=== PATIENT | female | born 2005 | race Caucasian/White ===

== ENCOUNTER 2025-05-05 10:29 | Outpatient (AMB) | payer BC, SELFPAY ==
--- NOTE | 2025-05-05 10:38 | A.OFFPC_ITS ---
Vital Signs 05/05/25 10:46 Height 5 ft 6.14 in Weight 128 lb 8 oz BMI 20.7 BP 104/62 Blood Pressure Location Lt brachial Position Sitting Respiration 12 Pulse 92 Pulse Source Pulse Oximeter Temp 97.8 F Temp Source Oral Pulse Oximetry (%) 99 Oxygen Delivery Method Room Air Intake Visit Reasons: CPE Intake Note: New patient visit Surgical Sales Representative Required: No Allergies sulfamethoxazole (From Bactrim) Allergy (Intermediate, Verified 05/05/25 10:57) Vomiting trimethoprim (From Bactrim) Allergy (Intermediate, Verified 05/05/25 10:57) Vomiting Medication List - Last Reviewed 05/05/25 by Agnieszka Church, RODERICK propranolol 10 mg PO BID PRN sertraline 200 mg PO DAILY trazodone 25 - 50 mg PO BID PRN Tobacco use date assessed: 05/05/25 Dental Screening Dental Screen Date: 05/05/25 Did you have a dental visit in the last 12 months?: Yes Did you have a dental problem in the last 6 months where you did not have access to dental care?: No Was dental information given to patient?: Patient has dentist HPI HPI Comments History of Present Illness Details 19 y/o F with CHEN, insomnia, scoliosis, hx of LLL Pna, vitiligo, family hx of breast ca, Autism s/p L knee surgery, adenoidectomy 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 - Insomnia managed with trazodonefanny used currently. - Active w counselor and Med presciber - Vitiligo previously treated with topic al steroids; regular sunscreen use noted. Was ffd by derm; no longer - Autism spectrum disorder diagnosis bas ed on counselor's assessment. i do not have these records; i asked her for these - Reports family history of breast cance r in maternal aunt. Social History - Currently resides at home with parents and sister; planning to return to university campus. 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 - Reports smoking marijuana; no substanc e use beyond this noted. - Engages in sexuality active lifestyle with male partner, feels safe. Health Maintenance - Scheduled follow-up with psychiatrist regarding efficacy of current anxiety medication. - Planned referral to OBGYN for regular gynecological care. - Emphasized self-screening for breast c hanges, especially with family history of breast cancer. - Will begin routine mammogram screening s starting at age 40. Review of Systems - Psychiatric: Reports high anxiety. - Dermatologic: Denies significant issue s with vitiligo, managed with sunscreen use. - Other systems: Denies significant symp toms outside of those already discussed. Physical Exam General: Well developed, well nourished, in no acute distress. Appears stated age. Head: Normocephalic, atraumatic. Eyes: Pupils are equal, round and reactive to light and accommodation. Conjunctivae are clear. Vision grossly normal. P Ears: TMs clear AU, EACS WNL Nose: Patent, without discharge. Neck: Supple, no adenopathy or thyromegaly. No pain on palpation. Breast: Edu on SBE. Patient advised to perform self breast exams regularly, especially with family history of breast cancer. Lungs: Clear to auscultation bilaterally. No rales, rhonchi or wheeze noted. Good air flow in all tran. Heart: Regular rate and rhythm. No murmurs, click, rubs or gallops are noted. Abdomen: Bowel sounds present in all quadrants. The abdomen is soft, nontender, with no masses or organomegaly noted. No hernias are noted. : Deferred. Reviewed FLO & recommendations for routine EXCELLENCE MANAGER. Patient to be referred to OBGYN for routine care. Pulses: Peripheral pulses are equal and palpable bilaterally. Extremities: No clubbing, cyanosis nor edema is noted. Patient bites nails due to anxiety. Neurologic: Gait and station normal. Cranial Nerves 2-12 intact. Motor strength grossly symmetrical and intact. No sensory loss. Balance normal. Skin: No rashes, ulcers, or lesions noted. Turgor is good. Skin color is good. Hair and nails are without abnormalities. Vitiligo present on face Psych: Normal eye contact, affect and mood appropriate, and normal interactions. Results NA Discussion Notes In today's visit, we discussed the patient's current management plan for her anxiety and insomnia. She has been using sertraline for mood stabilization, but expresses concern regarding its current effectiveness. I advised her to consult with her psychiatrist for potential adjustments. She uses propranolol as needed for anxiety and finds it beneficial. Trazodone is used sporadically, primarily for relief from insomnia, especially anticipated with upcoming school demands. Vitiligo is not currently a major concern, managed with sunscreen. We discussed the importance of regular follow-up and screening with an OBGYN given her age and family cancer history. Encouraged active participation in self-monitoring for potential breast changes. Provided information regarding accessing our patient portal for communication and care management. Patient was given time to ask questions. All questions were answered to their satisfaction. Assessment and Plan 1. Anxiety - Cont psychiatrist follow-up for medica tion efficacy review. cont counseling - Continue propranolol as needed. 2. Insomnia - Use trazodone as needed. 3. Vitiligo - Maintain sunscreen use. 4. Autism Spectrum Disorder - Acknowledge diagnosis; No current inte rventions. Get records RTO 1 YEAR CPE, SOONER PRN Patient Instructions - Follow up with your psychiatrist next week regarding your anxiety medication. - Continue using propranolol as needed f or anxiety. - Use trazodone for insomnia, especially as school resumes. - Start regular self-breast exams and re port any changes. - Expect a call to schedule an OBGYN angus ointment. Consent Patient was informed and verbally consented to the use of an ambient scribe for clinic note documentation during this visit. An additional 20 minutes was spent addressing the problem(s) noted at todays visit. This includes time spent before the visit reviewing the chart, time spent during the visit, and time spent after the visit on documentation reviewing laboratory results, diagnostic imaging, medications, performing a medically necessary evaluation, counseling on diagnoses, care coordination, ordering appropriate tests, ordering appropriate medications, review of tests performed by other providers, reporting test results with the patient, communication with other healthcare providers. [facility] Medical History (Updated 05/05/25 @ 11:06 by K[facility]KE [facility] History of pneumonia Surgical History (Updated 05/05/25 @ 10:33 by Agnieszka Church CMA) H/O adenoidectomy S/P medial patellofemoral ligament reconstruction Family History (Updated 05/05/25 @ 10:44 by Agnieszka Church CMA) Maternal Grandmother Suicide Depression Maternal Grandfather Diabetes Mother Anxiety Other FH: mental illness Fibromyalgia Graves disease Social History (Updated 05/05/25 @ 10:48 by Agnieszka Church CMA) Housing: House Alcohol intake: current Patient Tobacco Use Status: Never used Tobacco e-Cigarette/Vaping Use: Never Used Second Hand Smoke Exposure: No Substance Use Type: Marijuana service: No Current occupational status: student Cognitive needs: No Hearing needs: No Vision needs: No Questionnaire PHQ-9 Over the last 2 weeks, how often have you been bothered by any of the following problems? 1. Little interest or pleasure in doing things: not at all 2. Feeling down, depressed, or hopeless: not at all 3. Trouble falling or staying asleep, or sleeping too much: not at all 4. Feeling tired or having little energy: several days 5. Poor appetite or overeating: more than half the days 6. Feeling bad about yourself - or that you are a failure or have let yourself or your family down: not at all 7. Trouble concentrating on things, such as reading the newspaper or watching television: not at all 8. Moving or speaking so slowly that other people could have noticed. Or the opposite - being so fidgety or restless that you have been moving around a lot more than usual: not at all 9. Thoughts that you would be better off or of hurting yourself in some way: not at all Total score: 3 Depression Screening Interpretation: Negative Depression Screening Done: Yes 59223 - PHQ-9 Billing: Yes Source: Developed by Drs. Jose Enrique Rucker, Jenna Mcclelland, Julien Rubalcava and colleagues, with an educational lindsay from [employer]. Thrive Questionnaire Date Thrive assessed: 05/04/25 I am a: Patient What is your living situation today?: I have a steady place to live Within the past 12 months, did the food you bought not last and you didn't have the money to get more?: Never true Within the past 12 months, did you worry whether your food would run out before you got money to buy more?: Never true Do you have trouble paying for medicines?: No Do you have trouble getting transportation to medical appointments?: No Do you have trouble paying your heating and electricity bill?: No Do you have trouble taking care of your child, family member or friend?: No Do you have trouble with day-to-day activities such as bathing, preparing meals, shopping, managing finances, etc.?: No Are you currently unemployed and looking for a job?: No Are you interested in more education?: No Please select the resources that you would like help with: None Currently or been in a relationship where the following occur: No concerns reported THRIVE Score: 0 AUDIT C Alcohol Use Questionnaire (AUDIT-C) 1. How often do you have a drink containing alcohol?: Monthly or less 2. How many drinks containing alcohol do you have on a typical day when you are drinking?: 3 or 4 3. How often do you have six or more drinks on one occasion?: Never Total Score: 2 Score Reviewed/Action Taken: Yes CHEN-7 AMB Questionnaire CHEN-7 Date CHEN - 7 assessed: 05/05/25 Feeling nervous, anxious, or on edge: 3 = Nearly every day Not being able to stop or control worryin = More than half the days Worrying too much about different things: 3 = Nearly every day Trouble relaxin = Several days Being so restless that it is hard to sit still: 0 = Not at all Becoming easily annoyed or irritable: 0 = Not at all Feeling afraid as if something awful might happen: 1 = Several days Total CHEN-7 score (0-4 normal; 5-9 mild; 10-14 moderate; 15-21 severe): 10 Source: Developed by Drs. Jose Enrique Rucker, Jenna Mcclelland, Julien Rubalcava and colleagues, with an educational lindsay from [employer]. CHEN-7 Assessment Billing CHEN-7 Assessment Tool: CHEN-7 Assessment 14987 Physical exam (Primary Care) Vital Signs: Last Vital Signs Temp 97.8 F 05/05/25 10:46 Pulse 92 05/05/25 10:46 Resp 12 05/05/25 10:46 BP 104/62 05/05/25 10:46 Pulse Ox 99 05/05/25 10:46 Oxygen Delivery Method Room Air 05/05/25 10:46 BMI result Body Mass Index 20.7 Tobacco/Smoking Status: Tobacco use Status Tobacco use date assessed 05/05/25 05/05/25 10:48 Patient Tobacco Use Status Never used Tobacco 05/05/25 10:48 e-Cigarette/Vaping Use Never Used 05/05/25 10:48 PHQ-9: PHQ-9 Score PHQ-9: Total score 3 05/05/25 10:48 Depression Screening Interpretation: Negative Thrive Assessment: Date of Thrive Assessment Date Thrive assessed 05/04/25 05/05/25 10:40 Currently or been in a relationship where the following occur: No concerns reported Coding Level of Care Code New Pt Level 3 (01616) New Pt Prev Care 18-39yr(25221 Diagnoses Encounter to establish care with new provider Z76.89 CHEN (generalized anxiety disorder) F41.1 Psychophysiological insomnia F51.04 Insomnia type: psychophysiologic Vitiligo L80 Family history of suicide Z81.8 Family history of breast cancer Z80.3 Autism spectrum disorder F84.0 Encounter for general adult medical examination without abnormal findings Z00.00 Additional Codes CHEN-7 Assessment Billing - CHEN-7 Assessment Tool: CHEN-7 Assessment 94810 ([id number]) PHQ-9 - 71576 - PHQ-9 Billing: Yes ([id number]) Assessment & Plan Assessment & Plan (1) Encounter to establish care with new provider: Code(s): Z76.89 - Persons encountering health services in other specified circumstances (2) CHEN (generalized anxiety disorder): Comment: managed by outside prescriber and counselor Code(s): F41.1 - Generalized anxiety disorder Category: Medical (3) Insomnia: Code(s): G47.00 - Insomnia, unspecified Category: Medical Qualifiers: Insomnia type: psychophysiologic Qualified Code(s): F51.04 - Psychophysiologic insomnia (4) Vitiligo: Code(s): L80 - Vitiligo Category: Medical (5) Family history of suicide: Comment: [facility] Code(s): Z81.8 - Family history of other mental and behavioral disorders Category: Medical (6) Family history of breast cancer: Comment: maternal aunt age 55 Code(s): Z80.3 - Family history of malignant neoplasm of breast Category: Medical (7) Autism spectrum disorder: Code(s): F84.0 - Autistic disorder Category: Medical (8) Encounter for general adult medical examination without abnormal findings: Onset Date: ~05/05/25 Code(s): Z00.00 - Encounter for general adult medical examination without abnormal findings Category: Medical Plan . 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 Seasonal Allergies ? Insect Bites ? Cough ? Diarrhea ? Acute Asthma Attacks ? Back, Knee or Joint Pain ? Ear Infection ? Fever without a Rash ? Headaches ? Nausea ? [place] [facility], Rash or Skin Irritation ? Sore Throat ? Sports Physicals ? Vomiting Most insurances are accepted. Patients do not need to be part of the [facility] to seek care at the walk-in clinic. Locations [facility] [place] [address] ? [phone] [facility] [place] provides services to ages 18 and over. Open Sunday-Sunday: 8 a.m. to 5 p.m. and Sunday: 9 a.m. to 3 p.m.* *Hours may vary due to staffing availability. To confirm Walk-In Care hours in [place], please call [phone]. [address] [place] [address] ? [phone] [facility] [place] provides services to ages 12 and over. Open Sunday-Sunday: 8 a.m. to 5 p.m. Hours may vary due to staffing availability. To confirm Walk-In Care hours in [place], please call [phone]. LABORATORY SERVICES: [facility] Lab ? Primary Location [address] [place] [address] Sunday through Sunday 6:00 AM ? 5:00 PM Sunday 7:00 AM ? 11:00 AM* [phone] The [facility] Lab is centrally located near the front entrance of the [facility] for easy outpatient access. Convenient parking is provided for outpatients. *Hours may vary due to staffing availability. To confirm Laboratory hours for any location, please call [phone]. Offsite Location For your convenience, we offer offsite laboratory draw stations at the following locations: [address] [facility], [place] ? [facility] [address] [facility], [address], [place] Sunday through Sunday 7:30 AM ? 1:00 PM* [phone] *Hours may vary due to staffing availability. To confirm Laboratory hours for any location, please call [phone]. [place] ? [facility] [address] [facility] Sunday through Sunday 6:00 AM ? 3:30 PM* Sunday 6:30 AM ? 3 PM* [phone] *Hours may vary due to staffing availability. To confirm Laboratory hours for any location, please call [phone]. [address] [facility] Sunday through Sunday 7:30 AM ? 4:00 PM* [phone] *Hours may vary due to staffing availability. To confirm Laboratory hours for any location, please call [phone] [place] [address] Sunday through 9:00 AM ? 4:00 PM* *Hours may vary due to staffing availability. To confirm Laboratory hours for any location, please call [phone]. Appointments are not necessary. Walk-ins are welcome. Like all the departments throughout the [facility], our Lab undergoes frequent reviews to ensure the quality and accuracy of test results, and our staff takes special pride in its status as a nationally accredited facility. Patient Portal: ONE PATIENT. ONE RECORD. BETTER CARE. [facility] has a fully integrated, cutting- edge mobile electronic health information system that has revolutionized the way we care for our patients and manage our organization. This system improves communication and coordination enabling us to provide safe, higher-quality care, and an overall positive experience for staff and patients. Our first priority, as always, is to deliver the highest quality care possible. The system is running in the background supporting that priority. This portal is for all [facility] services and practices. If you are experiencing any technical difficulties with enrolling or logging into the Patient Portal please complete the [facility] Patient Portal Technical Support Form. [facility] now offers a new secure on-line interactive tool for patients to review their health information ? ?Patient Portal. This interactive web portal will enable patients and their families to take an active role in their care by providing easy, secure access to their health information via the internet. The Patient Portal provides patients with instant access to their health information, including laboratory results, medications, allergies, demographic information, visit history, and more. In addition to managing their own care, parents and health care proxies with authorized consent will appreciate the ability to access the records of those individuals for whom they provide care. Please note: if you wish to gain access (Proxy) to another patient?s portal, you will be required to come to the Medical Records Department in person at [facility]. Both the patient giving proxy access and the proxy will need to provide photo identification and complete the appropriate authorization. The Patient Portal also allows track their appointments online. The [facility] Patient Portal also saves patients time by allowing them to submit updates to their demographic and contact information prior to their visits. Portal email notifications will also alert patients to any new activity on their portal, such as test results and new appointments. In order to initially enroll in the [facility] Patient Portal, you will need to enter some required information including the following: * your [facility] Medical Record number * your personal home email address * name * date of Please note: In order to enroll in the [facility] Patient Portal, we need to have your email address on file in your electronic medical record. ?The email address needs to be specific for one person (yourself) in order for your Portal enrollment to be successful. ?You can update your email address in person with our Registration staff when you are registering for a hospital visit. ?Otherwise, you will need to come to the Health Information Management (Medical Records) Department at [facility]. ?We are open from Sunday ? Sunday from 7:30 a.m. ? 4:30 p.m. ?You will be required to present a photo id. Once you have successfully enrolled in the Patient Portal, you will receive a one-time user id and password for the Portal, sent to your email address. ?This will allow you to log into the Patient Portal within 99 hrs and reset your own logon id and password, and define personal security questions. ?Once your p ermanent login and password have been set, you can log into the [facility] Patient Portal at any time via the blue button above or from the Portal Logon button on any page of the [facility] website. [facility] encourage all of our patients to enroll in Patient Portal as it presents a valuable opportunity for patients and their families to actively participate in their care and stay healthy Welcome to [facility]. ?We look forward to working with you. Health screenings for women You should visit your health care provider from time to time, even if you are healthy. The purpose of these visits is to: Screen for medical issues Assess your risk for future medical problems Encourage a healthy lifestyle Update vaccinations and other preventive care services Help you get to know your provider in case of an illness Information Even if you feel fine, you should still see your provider for regular checkups. These visits can help you avoid problems in the future. For example, the only way to find out if you have high blood pressure is to have it checked regularly. High blood sugar and high cholesterol levels also may not have any symptoms in the early stages. A simple blood test can check for these conditions. There are specific times when you should see your provider or receive specific health screenings. The [place] Preventive Services Task Force publishes a list of recommended screenings. Below are screening guidelines for women ages 18 to 39. BLOOD PRESSURE SCREENING Your blood pressure should be checked at least once every 3 to 5 years if: Your blood pressure is in the normal range (top number less than 120 mm Hg and bottom number less than 80 mm Hg) You don't have risk factors for high blood pressure Ask your provider if you need your blood pressure checked more often if: The top number is 120 to 129 mm Hg or the bottom number is 70 to 79 mm Hg You have diabetes, heart disease, kidney problems, are overweight, or have certain other health conditions You have a first-degree relative with high blood pressure You are Black You had high blood pressure during a If the top number is 130 mm Hg or greater or the bottom number is 80 mm Hg or greater, this is considered stage 1 hypertension. Schedule an appointment with your provider to learn how you can reduce your blood pressure. Watch for blood pressure screenings in your area. Ask your provider if you can stop in to have your blood pressure checked. BREAST CANCER SCREENING Experts do not agree about the benefits of breast self-exams in finding breast cancer or saving lives. Talk to your provider about what is best for you. A screening mammogram is not recommended for most women under age 40. Your provider may discuss and recommend mammograms, MRI scans, or ultrasounds if you have an increased risk for breast cancer, such as: A mother or sister who had breast cancer at a young age (most often starting screening earlier than the age the close relative was diagnosed) You carry a high-risk genetic marker CERVICAL CANCER SCREENING Cervical cancer screening should start at age 21 years unless your provider advises otherwise. After the first test: Women ages 21 through 29 should have a Pap test every 3 years. Exoprts do not agree on whether HPV testing is recommended for this age group. Women ages 30 through 65 should be screened with either a Pap test every 3 years or the HPV test every 5 years or both tests every 5 years (called cotesting ). Women who have been treated for precancer (cervical dysplasia) should continue to have Pap tests for 20 years after treatment or until age 65, whichever is longer. If you have had your uterus and cervix removed (total hysterectomy), and you have not been diagnosed with cervical cancer or precancer (high grade cervical neoplasia), you do not need cervical cancer screening. CHOLESTEROL SCREENING Cholesterol screening should begin at: Age 45 for women with no known risk factors for coronary heart disease Age 20 for women with known risk factors for coronary heart disease Repeat cholesterol screening should take place: Every 5 years for women with normal cholesterol levels More often if changes occur in lifestyle (including weight gain and diet) More often if you have diabetes, heart disease, kidney problems, or certain other conditions DIABETES SCREENING You should be screened for diabetes starting at age 35 and then repeated every 3 years if you have no risk factors for diabetes. Screening may need to start earlier and be repeated more often if you have other risk factors for diabetes, such as: You have a first degree relative with diabetes. You are overweight or have obesity. You have high blood pressure, prediabetes, or a history of heart disease. Screening for diabetes should be done if you are planning to become and you are overweight and have other risk factors such as high blood pressure. DENTAL EXAM Go to the dentist once or twice every year for an exam and cleaning. Your dentist will evaluate if you need more frequent visits. EYE EXAM Have an eye exam every 5 to 10 years before age 40. If you have vision problems, have an eye exam every 2 years or more often if recommended by your provider. You should have an eye exam that includes an examination of your retina (back of your eye) at least every year if you have diabetes. IMMUNIZATIONS Commonly needed vaccines include: Flu shot: get one every year. COVID-19 vaccine: ask your provider what is best for you. Tetanus-diphtheria and acellular pertussis (Tdap) vaccine: have one at or after age 19 as one of your tetanus-diphtheria vaccines if you did not receive it as an adolescent. Tetanus-diphtheria: have a booster (or Tdap) every 10 years. Varicella vaccine: receive 2 doses if you never had chickenpox or the varicella vaccine. Hepatitis B vaccine: receive 2, 3, or 4 doses, depending on your exact circumstances. Measles, mumps, and rubella (MMR) vaccine: receive 1 to 2 doses if you are not already immune to MMR. Your provider can tell you if you are immune. Ask your provider about the human papillomavirus (HPV) vaccine if: You have not received the HPV vaccine in the past You have not completed the full vaccine series (you should catch up on this shot) Ask your provider if you should receive other immunizations if you have certain health problems that increase your risk for some diseases such as pneumonia. INFECTIOUS DISEASE SCREENING Women who are sexually active should be screened for chlamydia and gonorrhea up until age 25. Women 25 years and older should be screened for chlamydia and gonorrhea if at high risk. Screening for hepatitis C: All adults ages 18 to 79 should get a one-time test for hepatitis C. people should be screened at every . Screening for human immunodeficiency virus (HIV): All people ages 15 to 65 should get a one-time test for HIV. Depending on your lifestyle and medical history, you may also need to be screened for infections such as syphilis and HIV, as well as other infections. PHYSICAL EXAM All adults should visit their provider from time to time, even if they are healthy. The purpose of these visits is to: Screen for disease Assess your risk of future medical problems Encourage a healthy lifestyle Update your vaccinations and other preventive care services Maintain a relationship with a provider in case of an illness Your height, weight, and BMI should be checked at every exam. During your exam, your provider may ask you about: Depression and anxiety Diet and exercise Alcohol and tobacco use Safety issues, such as using seat belts, smoke detectors, and intimate partner violence Your medicines and risk for interactions SKIN SELF-EXAM Your provider may check your skin for signs of skin cancer, especially if you're at high risk, such as if you: Have had skin cancer before Have close relatives with skin cancer Have a weakened immune system OTHER SCREENING Talk with your provider about colon cancer screening if you have a strong family history of colon cancer or polyps, or if you have had inflammatory bowel disease or polyps yourself. Routine bone density screening of women under 40 is not recommended.
[2025-05-05 10:46] VITALS: BP 104/62; PULSE 92; RESP 12; TEMP 36.6; O2SAT 99; BMI 20.7
--- OUTSIDE RECORDS SUMMARY | 2025-05-05 11:55 | XMS_ITS | Clinical Summary ---
Author Organization [facility] Address [address] [place] [address] Phone Care Team Providers Care Flight Steward Name Role Phone Helen Cuevas NP Primary Care Provider [phone] Encounters Date Type Department Care Team Description 03/17/2025 Telephone [place] [address] [place] [address] Helen Cuevas NP medical release form (Medical release form faxed to HIM, copy scanned into documents) from Last 3 Months Surgical History Surgery Date Site/Laterality Comments OTHER SURGICAL HISTORY 09/17/2015 PROCEDURE: HI ADENOIDECTOMY SECONDARY<AGE 11 ORTHOPEDIC SURGERY 02/20/2023 PROCEDURE: HISTORICAL ORTHOPEDIC SURGERY; COMMENT: MPFL reconstructions w/a cadaver ligament L Medical History Medical History Date Comments Wart viral 09/17/2011 DX:Wart viral; C OMMENT: cryotherapy to right great toe Otitis media 12/17/2011 DX:Otitis media Strep pharyngitis 11/01, 01/29 DX:Strep phary ngitis Mononucleosis 04/17/2013 DX:Mononucleosis Left lower lobe pneumonia 08/23/2015 DX:Lef t lower lobe pneumonia COVID-19 virus infection 12/2021 DX:COVI D-19 virus infection Closed patellar dislocation 10/23/2022 DX:C losed patellar dislocation; COMMENT: 10/19/22 ER [facility] Will refer to ortho Family History Medical History Relation Name Comments Allergies Aunt 1 FIBROMYALGIA Asthma Aunt 2 Thyroid disease Aunt 3 GRAVES Diabetes Maternal Grandfather Depression Maternal Grandmother Hypertension Paternal Grandfather Relation Name Status Comments Aunt 1 Aunt 2 Aunt 3 Aunt 4 Father Alive 1974-healthy Maternal Grandfather Alive Type I DM Maternal Grandmother Alive HTN Mother Alive 1974-ANXIETY Paternal Grandfather Alive HTN, ab dominal aneurysm rupture (survived) Paternal Grandmother Alive healthy Sister Alive [id number] lthy Social History Tobacco Use Types Packs/Day Years Used Date Smoking Tobacco: Never Smokeless Tobacco: Never Alcohol Use Standard Drinks/Week Comments Never 0 (1 standard drink = 0.6 oz pur e alcohol) Comments Unknown Sex and Gender Information Value Date Recorded Sex Assigned at Not on file Legal Sex Female 1:08 AM EST Gender Identity Not on file Sexual Orientation Not on file Obstetrics History Last Filed Vital Signs Vital Sign Reading Time Taken Comments Blood Pressure 120/74 03/27/2023 8:31 AM EDT Pulse 91 03/27/2023 8:31 AM EDT Temperature - - Respiratory Rate - - Oxygen Saturation - - Inhaled Oxygen Concentration - - Weight 60.1 kg (132 lb 9.6 oz) 03/27/2023 8:31 A M EDT Height 170.2 cm (5' 7 ) 03/27/2023 8:31 AM EDT Body Mass Index 20.77 03/27/2023 8:31 AM EDT Plan of Treatment Health Maintenance Due Date Last Done Comments Gonorrhea/Chlamydia Screening 2004 Meningococcal B Vaccine (1 of 2 - Standard) 2020 HIV Screening 08/26/2022 Hepatitis C Screening 08/26/2022 Social Influencers of Health Screening 08/26/2022 Annual Well Child Visit (3-21 years old) 03/27/2024 03/27/2023, 03/23/2022, 03/17/2021, Additional history exists COVID-19 Vaccine ( season) 2024 10/04/2021, 01/17/2021, 12/26/2020 Depression Screening 09/17/2024 Influenza Vaccine (#1) 2025 8, 07/03/2017, 06/22/2016, Additional history exists DTaP,Tdap,and Td Vaccines (7 - Td or Tdap) 01/11/2026 01/12/2016, 11/03/2008, 02/02/2006, Additional history exists Hepatitis B Vaccines Completed 05/05/2005, 03/06/2005, 01/02/2005, Additional history exists Pneumococcal Vaccine: Pediatrics (0 to 5 Years) and At-Risk Patients (6 to 49 Years) Completed 2005, 05/05/2005, 03/06/2005, Additional history exists HIB Vaccines Completed 02/02/2006, 04/17, 03/06/2005, Additional history exists Hepatitis A Vaccines Completed 05/15/2008, 11/14/19 08 IPV Vaccines Completed 11/03/2008, 04/17, 05/05/2005, Additional history exists MMR Vaccines Completed 11/03/2008, 02/02/2006 Varicella Vaccines Completed 11/03/2008, 2005 HPV Vaccines Completed 03/10/2019, 02/15/2018 Meningococcal ACWY Vaccine Completed 03/17/2021, RSV Immunization Patients Under 20 months Aged Out No longer eligible based on patient's age to complete this topic Care Teams Flight Steward Relationship Specialty Start Date End Date Helen Cuevas NP PCP - General Pediatrics 12/19/21
--- OUTSIDE RECORDS SUMMARY | 2025-05-05 11:55 | XMS_ITS | Clinical Summary ---
Author Organization [facility] Address [address] [place] [address] Phone Care Team Providers Care Legal Examiner Name Role Phone Helen Cuevas Unavailable [phone] Helen Cuevas Primary Care Provider [phone] Helen Cuevas Unavailable [phone] Medications sertraline (Zoloft) 100 mg tablet mg, tab, PO, daily, Entered: 02/20/23 9:55:00 EDT 02/20/2023 Active traZODone (Desyrel) 50 mg tablet Entered: 02/16/23 13:42:00 EDT 02/16/2023 Active Social History Tobacco Use Types Packs/Day Years Used Date Smoking Tobacco: Never Assessed Comments Unknown Sex and Gender Information Value Date Recorded Sex Assigned at Not on file Legal Sex Female 6:14 AM EDT Gender Identity Not on file Sexual Orientation Not on file Last Filed Vital Signs Vital Sign Reading Time Taken Comments Blood Pressure 113/70 02/20/2023 3:30 PM EDT Pulse 75 02/20/2023 3:30 PM EDT Temperature - - Respiratory Rate 16 02/20/2023 3:30 PM EDT Oxygen Saturation 98% 02/20/2023 3:30 PM EDT Inhaled Oxygen Concentration - - Weight 59.5 kg (131 lb 2.8 oz) 04/13/2023 11:42 AM EDT Height 170.6 cm (5' 7.17 ) 04/13/2023 11:42 AM E DT Body Mass Index 20.44 04/13/2023 11:42 AM EDT Plan of Treatment Health Maintenance Due Date Last Done Comments HIV Screening 2004 MMR Vaccines (1 of 1 - Stand janet series) 2005 DTaP/Tdap/Td Vaccines (1 - Tdap) 2011 Varicella Vaccines (1 of 2 - 13+ 2-dose series) 2017 HPV Vaccines (1 - 3-dose series) 2019 Meningococcal B Vaccine (1 o f 2 - Standard) 2020 Hepatitis C Screening 2022 Hepatitis B Vaccines (1 of 3 - 19+ 3-dose series) 2023 COVID-19 Vaccine (1 - 2023-2 5 season) 2024 Influenza Vaccine (#1) 2025 HIB Vaccines Aged Out No longer eligi ble based on patient's age to complete this topic Hepatitis A Vaccines Aged Out No long er eligible based on patient's age to complete this topic IPV Vaccines Aged Out No longer eligi ble based on patient's age to complete this topic Meningococcal Vaccine Aged Out No jagdish sina eligible based on patient's age to complete this topic Pneumococcal Vaccine: Pediat rics (0 to 5 Years) and At-Risk Patients (6 to 49 Years) Aged Out No longer eligible b ased on patient's age to complete this topic Rotavirus Vaccines Aged Out No longer eligible based on patient's age to complete this topic Medical Devices Implanted Type Area Apprentice Technician Device Identifier Shelf Expiration Date Model / Serial / Lot [employer] Suture [place] Biocomposite Corkscrew 4.5mm Implanted:Qty: 1 on 02/20/2023 by Cayden Kirby MD [place] Left: Knee 09/16/2026 / / [id number] [employer] Suture [place] Suturetak 3mm X 14.5mm Implanted:Qty: 1 on 02/20/2023 by Cayden Kirby MD [place] Left: Knee 11/14/2026 / / [id number] [employer] Suture [place] Suturetak 3mm X 14.5mm Implanted:Qty: 1 on 02/20/2023 by Cayden Kirby MD [place] Left: Knee 09/16/2026 / / [id number] Graft Tendon [id number] Semitendinosus Frozen Implanted:Qty: 1 on 02/20/2023 by Cayden Kirby MD Tendon Left: [facility] 12/25/2027 / [id number] / [id number] Care Teams Legal Examiner Relationship Specialty Start Date End Date Helen Cuevas [address] [place] [id number] PCP - Insurance PCP 12/15/22 Helen Cuevas [address] [place] [id number] PCP - General 11/30/22 Helen Cuevas [address] [place] [id number] PCP - Clinical PCP 11/30/22
--- OUTSIDE RECORDS SUMMARY | 2025-05-05 11:55 | XMS_ITS ---
Author Name [facility] Organization Unknown Care Team Organization Name Specialty Phone Email Start Date End Da te [facility] NO PROVIDER Primary Care 10/07/2023 [facility] 06/22/2023 12/13/2024 [facility] 06/22/2023 06/22/2023 [facility] YANELI GORDON Primary Care 07/25/20222023 [facility]
== END 2025-05-05 11:15 | disposition home or self-care (01) ==
LOC: HO.HMCFM 10:30
PROVIDERS: PCP Nurse Practitioner Family; Visit Provider Nurse Practitioner Family
DX: Z00.00 Encounter for general adult medical examination without abnormal findings (principal); F41.1 Generalized anxiety disorder; F51.04 Psychophysiologic insomnia; L80 Vitiligo; F84.0 Autistic disorder; Z76.89 Persons encountering health services in other specified circumstances; Z81.8 Family history of other mental and behavioral disorders; Z80.3 Family history of malignant neoplasm of breast

== ENCOUNTER → 2025-05-05 10:29 | Outpatient (BNVA) | payer BC, SELFPAY | PROVIDERS: PCP Nurse Practitioner Family; Visit Provider Nurse Practitioner Family | DX: F41.1 Generalized anxiety disorder (principal); G47.00 Insomnia, unspecified; L80 Vitiligo; F84.0 Autistic disorder; F51.04 Psychophysiologic insomnia; Z76.89 Persons encountering health services in other specified circumstances; Z81.8 Family history of other mental and behavioral disorders; Z80.3 Family history of malignant neoplasm of breast | CPT/HCPCS: 96127 ==